=== PATIENT | female | born 1965 | race Caucasian/White ===

== ENCOUNTER 2018-12-02 22:18 | Emergency (ER) | payer BC ==
[~2018-12-02] VITALS: Ht 167.6 cm; Wt 98.4 kg
[2018-12-02] MEDS ORDERED: BACTRIM DS TAB1 EACH PO (22:40)
[2018-12-02] MEDS ORDERED: KEFLEX500 M1 PO (22:41)
[2018-12-03 00:02] LABS: ABSOLUTE NEUTROPHILS 4.1 thou/uL (1.4-8.2); BASOPHILS 0.9 % (0.0-2.0); EOSINOPHILS 3.5 % (0.0-3.0); HEMATOCRIT 39.4 % (37.0-47.0); HEMOGLOBIN 13.6 gm/dL (12.0-15.0); LYMPHOCYTES 35.5 % (24.0-44.0); MCH 31.3 pg (26.0-34.0); MCHC 34.6 g/dL (28.0-37.0); MCV 90.6 fL (80.0-100.0); MONOCYTES 5.4 % (1.0-8.0); PLATELET COUNT 284 thou/uL (150-400); POLYS 54.7 % (36.0-66.0); RBC 4.35 mil/uL (4.20-5.00); RDW 13.9 % (10.5-14.5); WBC 7.5 thou/uL (4.0-11.0)
[2018-12-03 00:10] LABS: CALCIUM 8.7 mg/dL (8.5-10.1); CREATININE 0.8 mg/dL (0.6-1.0); POTASSIUM 4.1 mmol/L (3.5-5.1)
[2018-12-03 02:05] VITALS: BP 160/80
== END 2018-12-03 02:05 | disposition home or self-care (01) ==
LOC: ER 22:18
PROVIDERS: Emergency Medicine
DX: L02.415 Cutaneous abscess of right lower limb (principal); J44.9 Chronic obstructive pulmonary disease, unspecified; F17.210 Nicotine dependence, cigarettes, uncomplicated; Z90.710 Acquired absence of both cervix and uterus; Z86.14 Personal history of Methicillin resistant Staphylococcus aureus infection